=== PATIENT | female | born 1990 | race African-American/Black ===

== ENCOUNTER 2024-04-20 13:28 | Emergency (ER) | payer MEDICAID, OTHER ==
[~2024-04-20] VITALS: Ht 170.2 cm; Wt 99.5 kg
[2024-04-20] MEDS: HYDROcodone-ACET 10/325MG TAB PO ONE (14:31)
[2024-04-20 14:34] VITALS: BP 112/72; PULSE 72; RESP 15; TEMP 98.1; O2SAT 100
== END 2024-04-20 15:03 | disposition home or self-care (01) ==
LOC: ER 13:28
DX: G44.009 Cluster headache syndrome, unspecified, not intractable (principal); E11.9 Type 2 diabetes mellitus without complications; K21.9 Gastro-esophageal reflux disease without esophagitis

== ENCOUNTER 2024-04-28 08:41 | Emergency (ER) | payer MEDICAID ==
[~2024-04-28] VITALS: Ht 170.2 cm; Wt 97.0 kg
[2024-04-28 09:15] VITALS: BP 126/76; PULSE 74; RESP 16; TEMP 98.6; O2SAT 100
[2024-04-28] MEDS: KETOROLAC TROMETH 30 MG/ML 1ML VIAL IM ONE (09:33)
== END 2024-04-28 10:03 | disposition home or self-care (01) ==
LOC: ER 08:41
DX: G44.209 Tension-type headache, unspecified, not intractable (principal)
CPT/HCPCS: 82962; 96372; 99283; J1885

== ENCOUNTER 2024-05-09 09:35 | Emergency (ER) | payer MEDICAID ==
[~2024-05-09] VITALS: Ht 172.7 cm; Wt 94.6 kg
[2024-05-09 10:38] VITALS: BP 126/83; PULSE 77; RESP 16; TEMP 98.2; O2SAT 100
[2024-05-09 10:40] LABS: Urine Bacteria FEW /hpf (None Seen); Urine Blood Negative /uL (Negative); Urine Clarity Clear (Clear); Urine Protein, UAD Negative (Negative); Urine Specific Gravity 1.003 (1.001-1.035); Urine Urobilinogen Normal (Negative); Urine WBC <1 /hpf (0 - 5); Urine pH 6.5 (5.0-9.0)
[2024-05-09 10:44] LABS: Urine Color Light-Yellow (Yellow)
[2024-05-09] MEDS ORDERED: METR-344 PO (10:56)
[2024-05-09] MEDS ORDERED: IBUP-1456 PO (10:56)
== END 2024-05-09 11:07 | disposition home or self-care (01) ==
LOC: ER 09:35
DX: S39.012A Strain of muscle, fascia and tendon of lower back, initial encounter (principal); N76.0 Acute vaginitis; B96.89 Other specified bacterial agents as the cause of diseases classified elsewhere; Z79.1 Long term (current) use of non-steroidal anti-inflammatories (NSAID); Z32.02 Encounter for pregnancy test, result negative; X58.XXXA Exposure to other specified factors, initial encounter; Y93.89 Activity, other specified; Y92.89 Other specified places as the place of occurrence of the external cause; Y99.8 Other external cause status
CPT/HCPCS: 81001; 81025